=== PATIENT | female | born 1955 | race Hispanic/Latino ===

== ENCOUNTER 2019-03-06 10:43 | Emergency (ER) | payer OTHER ==
[2019-03-06 11:09] LABS: BASOPHILS % (AUTO) 0.5 % (0.0-5.0); HEMATOCRIT 36.1 % (36-48); LYMPHOCYTES % (AUTO) 48.5 % (21.0-51.0); MEAN CORPUSCULAR HEMOGLOBIN 32.2 pg (27.0-33.0); MEAN CORPUSCULAR HGB CONC 34.7 g/dL (32.0-36.0); MEAN CORPUSCULAR VOLUME 92.9 fL (79-99); MONOCYTES % (AUTO) 6.1 % (3.0-13.0); NEUTROPHILS % (AUTO) 42.9 % (40.0-77.0); NUCLEATED RED BLOOD CELLS 0.1 % (0.0-0.19); PLATELET COUNT (AUTO) 198 K/uL (130-400); RED BLOOD CELL COUNT(AUTO) 3.89 MIL/uL (4.00-5.50); WHITE BLOOD COUNT (AUTO) 4.8 K/uL (4.8-10.8)
--- NOTE | 2019-03-06 11:13 | NUR ---
[facility] Sw recd call from Malini Irene [phone] regarding this pt. Per Malini, per has open APS case. Malini spoke to pt's niece who reports that pt is giving false name and information to try and get assistance. Per Malini, pt gave name Adry Blas and date 59. Niece told Malini that Adry Blas is her mother and she does not live in [place]. Niece reported that her mother's sister Mona Blas lives in [place] and niece was unable to verify true birthday of aunt. Malini states that pt is an undocumented woman who does not qualify for any benefits. Pt is diabetic and in need of medication. Malini states that they can assist pt with meds, 1x, but they need prescriptions. Chris spoke to Er nurse Sparkle and informed of above. Pt was here and did give sister's name. Sparkle has contact # for APS. Aps notified that pt is in ER.
[2019-03-06 11:16] LABS: BILIRUBIN,URINE NEGATIVE (NEGATIVE); COLOR,URINE YELLOW (YELLOW); GLUCOSE, URINE (UA) >=1000 mg/dL (NEGATIVE); KETONES,URINE NEGATIVE (NEGATIVE); LEUKOCYTE ESTERASE ,URINE NEGATIVE (NEGATIVE); NITRATE,URINE NEGATIVE (NEGATIVE); OCCULT BLOOD,URINE TRACE-INTACT (NEGATIVE); PROTEIN,URINE 100 mg/dL (NEGATIVE); UROBILINOGEN,URINE 0.2 mg/dL (0.2-1.0)
[2019-03-06 11:18] LABS: APPEARANCE,URINE SLIGHTLY CLOUDY (CLEAR)
[2019-03-06 11:26] LABS: ALBUMIN 2.4 g/dL (3.5-5.0); BILIRUBIN,TOTAL 0.3 mg/dL (0.2-1.0); CREATININE 0.6 mg/dL (0.5-1.5); POTASSIUM 4.4 mmol/L (3.5-5.1)
[2019-03-06 11:40] LABS: BACTERIA,URINE Few /HPF (None Seen); RBC,URINE 0-1 /HPF (0-1)
[2019-03-06 11:41] LABS: WBC,URINE 0-1 /HPF (0-1); YEAST,URINE BUDDING Few /HPF (None Seen)
== END 2019-03-06 12:05 | disposition left against medical advice (07) ==
LOC: EDBD 10:43 → EDH 10:43
DX: E11.65 Type 2 diabetes mellitus with hyperglycemia (principal); R53.1 Weakness
CPT/HCPCS: 36415; 80053; 81001; 82948; 85025